=== PATIENT | female | born 1955 | race Caucasian/White ===

== ENCOUNTER → 2016-04-16 | Outpatient (CLI) | payer OTHER ==
[~2016-04-16] MED LIST: COEN100C11 PO; CYAN10005 PO; DULO60CA44 PO; GABA-113 PO; IODI1TAB PO; LEVO25TA5 PO; LORA10TA44 PO; MAGN1CAP2 PO; MULT-506 PO; OXYC-57 PO; TURM1CAP2 PO
== END | disposition home or self-care (01) ==
LOC: C.PAPS 14:11
PROVIDERS: ATTEND Obstetrics & Gynecology
DX: Z01.419 Encounter for gynecological examination (general) (routine) without abnormal findings (principal)

== ENCOUNTER → 2016-04-30 | Outpatient (CLI) | payer OTHER | END | disposition home or self-care (01) | LOC: C.PATHSPEC 15:12 | PROVIDERS: ATTEND Obstetrics & Gynecology | DX: N85.8 Other specified noninflammatory disorders of uterus (principal); F32.9 Major depressive disorder, single episode, unspecified ==

== ENCOUNTER → 2016-05-29 | Outpatient (CLI) | payer OTHER ==
[2016-05-29 14:37] LABS: BASO % 0.2 %; BASO ABS # 0.02 K/uL (0-0.2); COMPLETE YES; EOS % 6.4 %; HEMATOCRIT 42.3 % (37-47); IG% 0.4 %; LYMPH % 24.7 %; LYMPH ABS # 2.29 K/uL (1.2-3.4); MEAN CORPUSCULAR HEMOGLOBIN 31.2 pg (25-34); MEAN CORPUSCULAR HGB CONC 33.6 g/dl (32-36); MEAN PLATELET VOLUME 10.3 fL (7.4-10.4); MONO % 7.4 %; NEUT % 60.9 %; PLATELET COUNT 273 K/uL (130-400); RED BLOOD COUNT 4.55 M/uL (4.2-5.4); WHITE BLOOD COUNT 9.27 K/uL (4.8-10.8)
== END | disposition home or self-care (01) ==
LOC: C.LAB1850 13:46
PROVIDERS: ATTEND Obstetrics & Gynecology
DX: N95.0 Postmenopausal bleeding (principal)

== ENCOUNTER 2016-06-27 05:38 | Observation (INO) | payer OTHER ==
[2016-06-25 13:57] VITALS: BMI 37.0
--- NOTE | 2016-06-25 14:20 | PAT Medication Instructions ---
Service Date Jun 25, 2016. Current Home Medication List Coenzyme Q10 (Ubidecarenone) (Coq-10), 100 MG PO QAM Cyanocobalamin (Vitamin B-12), 1,000 MCG PO QAM Duloxetine Hcl (Cymbalta), 60 MG PO QAM Gabapentin (Neurontin), 300 MG PO HS Iodine (Kelp) (Kelp), 1 TAB PO QAM Levothyroxine Sodium (Levothyroxine Sodium), 1 TAB PO QAM Loratadine (Allergy), 10 MG PO BID Magnesium Oxide (Mg Supplement (Magnesium), 1 TAB PO QAM Multivitamin (Multivitamin), 1 TAB PO QAM Turmeric (Curcuma Longa) (Turmeric), 1 TAB PO QAM Medication Instructions For Your Scheduled Surgery - Hold the following medications 2 weeks prior to surgery: Coenzyme Q10 (Ubidecarenone) (Coq-10), 100 MG PO QAM Turmeric (Curcuma Longa) (Turmeric), 1 TAB PO QAM Iodine (Kelp) (Kelp), 1 TAB PO QAM - Hold the following medications the morning of surgery: Magnesium Oxide (Mg Supplement (Magnesium), 1 TAB PO QAM Multivitamin (Multivitamin), 1 TAB PO QAM Cyanocobalamin (Vitamin B-12), 1,000 MCG PO QAM Loratadine (Allergy), 10 MG PO BID - Take the following medications the morning of surgery with a sip of water OTHERWISE NOTHING TO EAT OR DRINK AFTER MIDNIGHT: Duloxetine Hcl (Cymbalta), 60 MG PO QAM Levothyroxine Sodium (Levothyroxine Sodium), 1 TAB PO QAM - Take the following medications as scheduled the night before surgery: Gabapentin (Neurontin), 300 MG PO HS Loratadine (Allergy), 10 MG PO BID If you have any questions please call us at [phone] or [phone] or [phone]
[2016-06-25 15:30] LABS: BUN/CREATININE RATIO 22.3 (10-20); CALCIUM 9.3 mg/dl (8.5-10.1); CREATININE 0.7 mg/dl (0.60-1.20); POTASSIUM 4.4 mmol/L (3.5-5.1)
[2016-06-27] VITALS (10 sets, daily range): BP systolic 117–155; BP diastolic 70–85; PULSE 72–83; TEMP 36.6–37.1; O2SAT 92–98; Ht 162.6 cm; Wt 98.9 kg
[~2016-06-27] VITALS: Ht 162.6 cm; Wt 98.9 kg
[~2016-06-27 05:38] MED LIST changes: -OXYC-57 PO
[2016-06-27] MEDS ORDERED: LACTATED RINGER'S 1000ML 1,000 ML IV SCH ×3 (06:00→09:16)
[2016-06-27] MEDS ORDERED: CEFAZOLIN 3000 MG/65 ML D5W 50 ML IV SCH (06:00)
[2016-06-27] MEDS ORDERED: ACETAMINOPHEN 1000 MG/100 ML IV IV ONE (06:08)
[2016-06-27] MEDS ORDERED: EpHEDrine SULFATE INJ 50 MG/ML AMP ONE (06:26)
[2016-06-27] MEDS ORDERED: SUCCINYLCHOLINE CHLORIDE 20 MG/ML 10 ML VIAL IV ONE (06:26)
[2016-06-27] MEDS ORDERED: PHENYLEPHRINE HCL INJ 10 MG/ML VIAL ONE (06:26)
[2016-06-27] MEDS ORDERED: DEXAMETHASONE SOD INJ 4 MG/ML VIAL ONE (06:26)
[2016-06-27] MEDS ORDERED: NEOSTIGMINE METHYLSULFATE 5 MG/5 ML SYR ONE (06:27)
[2016-06-27] MEDS ORDERED: FENTANYL CITRATE INJ 50 MCG/1 ML 2 ML VIAL ONE (06:27)
[2016-06-27] MEDS ORDERED: ROCURONIUM BROMIDE 10 MG/ML 5 ML VIAL ONE ×2 (06:27→08:29)
[2016-06-27] MEDS ORDERED: LIDOCAINE HCL 2% 2 ML VIAL (20MG/ML) ONE (06:27)
[2016-06-27] MEDS ORDERED: ONDANSETRON INJ 2 MG/ML 2 ML VIAL ONE (06:27)
[2016-06-27] MEDS ORDERED: MIDAZOLAM HCL 1 MG/ML 2ML VIAL ONE (06:27)
[2016-06-27] MEDS ORDERED: PROPOFOL IV EMULSION 10 MG/ML 20 ML VIAL IV ONE ×2 (06:27→08:14)
[2016-06-27] MEDS ORDERED: GLYCOPYRROLATE INJ 0.2 MG/ML VIAL ONE (06:27)
[2016-06-27] MEDS ORDERED: BUPIVACAINE 0.5 % 5 MG/1 ML MPF 30ML VIAL ONE (06:50)
[2016-06-27] MEDS ORDERED: METHYLENE BLUE 0.5% 10 ML VIAL ONE (06:50)
[2016-06-27] MEDS ORDERED: ATROPINE SULFATE 0.1 MG/ML 5ML SYR IV PRN (07:00)
[2016-06-27] MEDS ORDERED: ONDANSETRON INJ 2 MG/ML 2 ML VIAL IV PRN (07:00)
[2016-06-27] MEDS ORDERED: MoRPHine SULFATE 10 MG/ML CARP/VIAL IV PRN (07:00)
[2016-06-27] MEDS ORDERED: EpHEDrine SULFATE INJ 50 MG/ML AMP IV PRN (07:00)
--- NOTE | 2016-06-27 07:11 | History & Physical Bridge Note ---
H&P Re-Evaluation Bridge Note: I have examined the patient, reviewed the History & Physical and in the interval since the performance of the History & Physical I have noted the following changes of clinical significance: No changes noted
[2016-06-27] MEDS ORDERED: HYDROmorphone INJ 2 MG/ML SYR/VIAL ONE (07:48)
--- NOTE | 2016-06-27 09:16 | [facility] Post Operative Brief Note ---
Immediate Operative Summary Operative Date Jun 27, 2016. Pre-Operative Diagnosis Large intracavity uterine fibroid; postmenopausal bleeding Post-Operative Diagnosis Same as preop Procedure(s) Performed Robotic-assisted total laparoscopic hysterectomy, bilateral salpingo-oopherectomy, cystoscopy Surgeon Dr. Oneal Accountant Bookkeeper Surgeon(s) nursing Estimated Blood Loss 10cc Findings uterus mobile and retroverted. nl PM ovaries bilaterally, nl tubes, left paratubal cyst. nl appendix. Fluids (cc crystalloids) 1200cc Specimens A: uterus, cervix, bilateral fallopian tubes and ovaries Drains stacy Anesthesia gett Complication(s) None Disposition Recovery Room / PACU
[2016-06-27] MEDS ORDERED: OXYC-57 PO (09:19)
[2016-06-27] MEDS: FENTANYL CITRATE INJ 50 MCG/1 ML 2 ML VIAL IV PRN ×4 (09:20→09:35)
--- NOTE | 2016-06-27 09:20 | Discharge Instructions ---
Discharge Instructions Date of Service Jun 27, 2016. Admission Reason for Admission: Submucous Leiomyoma of Uterus Discharge Discharge Diagnosis / Problem: s/p hysterectomy with removal of tubes and ovaries Discharge Goals Goal(s): Specific Goal(s) Activity Recommendations Activity Limitations: per Instructions/Follow-up section . Instructions / Follow-Up Instructions / Follow-Up POST OPERATIVE: BOWEL FUNCTION/MEDICATIONS: 1. Constipation pain and discomfort are the most common complaints 5-7 days after surgery. Points 2-6 address the things that can help. 2. Chewing gum can help stimulate the gut and help improve digestion and motility. 3. Milk of Magnesia 1-2 times per day until return of bowel function. 4. Colace is a stool softener that helps. Taking this 2-3 times per day until bowel function returns to normal is highly recommended. 5. Dulcolax is a laxative that may be used if several days have passed without a bowel movement. Alternatively Miralax may be used daily instead. 6. Drink plenty of fluids as this will also reduce constipation. 7. Narcotic pain medications will be prescribed by your physician. They are safe to use and we encourage you to use them. If you are not allergic, ibuprofen will also be prescribed. Many patients will be able to transition off of the narcotic medications to ibuprofen by postoperative day 3. ACTIVITY RECOMMENDATIONS: 1. Get plenty of rest and listen to your body. If you are tired, take a nap. 2. You may shower, but do not take a tub bath until you see your doctor at the 2 week post operative visit. 3. Absolutely NO intercourse and nothing in the vagina until you are examined by your doctor at the 6 week visit. At that visit it will be determined when such activities can be resumed. This can range from 6-12 weeks after your surgery depending on healing time. 4. The main physical activity in the first week should be walking. By the second week you can slowly increase activity. There are no limits on walking up and down stairs. 5. Do not lift more than 5-10 lbs for 4 weeks. Remember the "one-handed rule", i.e. if you can lift something with only one hand it's likely okay. 6. Minimize district manager in training like vacuuming and exercising for 4 weeks. "Overdoing it" can lead to incisions not healing, pain and vaginal bleeding , so again, listen to your body. 7. Driving can be resumed when you feel able. Do not drive within 24 hours of taking a narcotic medication. EXPECTATIONS: 1. Vaginal spotting, bleeding and discharge are common after surgery. There may even be an odor to the discharge which is often related to sutures used in the vagina. If you experience heavy vaginal bleeding, call the office number day or night [phone]. 2. Bladder discomfort is common after surgery from the catheter. This usually resolves in 1-2 weeks. 3. By the end of the 3rd or 4th week you should be feeling much better. It may take up to 6 weeks for your energy levels to return to normal. 4. Narcotic medications have side effects such as: dizziness, headache, nausea and/or vomiting. If you suspect your pain medication is causing problems, call our office and we may be able to prescribe an alternate medication. 5. The skin incisions are often covered with a liquid bandage. This will gradually peel off over time. CALL THE OFFICE IF YOU HAVE ANY OF THE FOLLOWIN. Temperature of 101 degrees or higher. 2. Severe abdominal or pelvic pain not relieved by pain medication. 3. Persistent nausea or vomiting. 4. Increased pain with urination or difficulty urinating. 5. Bright red bleeding that soaks more than 1 pad per hour. CONTACT PHONE NUMBERS: Main Office: [phone] Surgical Nurse: [phone] extension [phone] Avoid all tobacco products. If you need help to stop smoking, call [place]'s FREE QUITLINE at . This is a free call. Current Hospital Diet Patient's current hospital diet: Discharge Diet Recommended Diet: Regular Diet Procedures Procedures Performed: Robotic-assisted total laparoscopic hysterectomy, bilateral salpingo-oopherectomy, cystoscopy Pending Studies Studies pending at discharge: no Medical Emergencies . Who to Call and When: Medical Emergencies: If at any time you feel your situation is an emergency, please call 911 immediately. . Non-Emergent Contact Non-Emergency issues call your: Machine Cloth Trimmer . . "Provider Documentation" section prepared by Kasis Oneal. VTE Core Measure Inpt VTE Proph given/why not?: Treatment not indicated [place] Drug Monitoring Program Search Results: patient reviewed within database, no issues identified
--- NOTE | 2016-06-27 09:25 | Medical Student: [facility] ---
Immediate Operative Summary Operative Date Jun 27, 2016. Pre-Operative Diagnosis postmenopausal bleeding; intracavitary leiomyoma of uterus Post-Operative Diagnosis same Procedure(s) Performed Total laparoscopic hysterectomy with robotic assist Bilateral Salpingo-oophrectomy Cystoscopy Surgeon Dr. Kassi Oneal Check Out Cashier Surgeon(s) none Estimated Blood Loss 10mL Findings uterus mobile and retroverted with 4cm intracavitary fibroid. Normal postmenopausal ovaries bilaterally, normal fallopian tubes with left paratubal cyst 2cm. Normal appendix in right lower quadrant. Fluids (cc crystalloids) 1200cc Lactated ringers Specimens Uterus, bilateral fallopian tubes and ovaries Drains stacy catheter Anesthesia general with endotracheal tube Complication(s) None Disposition Recovery Room / PACU
--- NOTE | 2016-06-27 09:26 | Medical Student: [facility] ---
Immediate Operative Summary Operative Date Jun 27, 2016. Pre-Operative Diagnosis Postmenopausal uterine bleeding, intracavitary leiomyoma of uterus Post-Operative Diagnosis Same Procedure(s) Performed Total laparoscopic hysterectomy with robotic assist, bilateral salpingo-oophorectomy, cystoscopy Surgeon Kassi Oneal MD Medical Terminologist Surgeon(s) None Estimated Blood Loss 10mL Findings Retroverted and retroflexed uterus on exam 4cm intracavitary uterine leiomyoma 2cm left-sided paratubal cyst Otherwise normal postmenopausal anatomy Fluids (cc crystalloids) 1200mL Lactated Ringer's solution IV Specimens Uterus, bilateral ovaries, bilateral fallopian tubes Anesthesia General anesthesia with endotracheal intubation Complication(s) None Disposition Recovery Room / PACU
[2016-06-27] MEDS ORDERED: IBUPROFEN 600 MG TAB PO PRN (09:30)
[2016-06-27] MEDS ORDERED: MEPERIDINE HCL 50 MG/ML CARP IV PRN (09:30)
[2016-06-27] MEDS ORDERED: KETOROLAC TROMETHAMINE 30 MG/ML VIAL IV. PRN (09:30)
[2016-06-27] MEDS ORDERED: SIMETHICONE 80 MG CHEW PO PRN (09:30)
[2016-06-27] MEDS ORDERED: MEPERIDINE HCL 75 MG/ML CARP IV PRN (09:30)
[2016-06-27] MEDS ORDERED: ACETAMINOPHEN 325 MG TAB PO PRN (09:30)
[2016-06-27] MEDS ORDERED: OXYCODONE/ACETAMINOPHEN 5-325 TAB PO PRN ×2 (09:30)
[2016-06-27] MEDS ORDERED: NALOXONE HCL 0.4 MG/1 ML VIAL/CARP ONE (09:38)
--- NOTE | 2016-06-27 10:46 | Anesthesiology Progress Note ---
Anesthesia Post Op Note Date & Time Jun 27, 2016 at 10:47 Vital Signs Pain Intensity: 0 Vital Signs Past 12 Hours Date Time Temp Pulse Resp B/P Pulse Ox O2 Delivery O2 Flow Rate FiO2 06/27/16 10:35 93 18 162/82 95 Nasal Cannula 3 06/27/16 10:25 83 18 165/72 94 Nasal Cannula 3 06/27/16 10:15 36.3 68 18 154/78 94 Mask 3 06/27/16 10:05 68 16 124/73 94 Mask 5 06/27/16 09:55 67 16 127/72 94 Mask 10 06/27/16 09:45 69 10 147/86 94 Mask 10 06/27/16 09:40 79 10 134/86 85 Mask 15 06/27/16 09:35 63 20 134/86 97 Mask 10 06/27/16 09:25 75 20 160/80 100 Mask 10 06/27/16 09:19 36.4 86 20 154/86 96 Mask 10 06/27/16 06:02 36.6 78 16 146/74 95 Room Air Notes Mental Status: alert / awake / arousable, participated in evaluation Pt Amnestic to Procedure: Yes Nausea / Vomiting: adequately controlled Pain: adequately controlled Airway Patency, RR, SpO2: stable & adequate BP & HR: stable & adequate Hydration State: stable & adequate Anesthetic Complications: no major complications apparent
[2016-06-27] MEDS ORDERED: IV FLUIDS COMPLETED PRN (11:45)
--- NOTE | 2016-06-27 12:59 | OPERATIVE REPORT ---
DATE OF OPERATION: 06/27/2016 PREOPERATIVE DIAGNOSES: 1. Intracavitary fibroid tumor. 2. Postmenopausal bleeding. POSTOPERATIVE DIAGNOSES: Same. PROCEDURE: 1. Total laparoscopic hysterectomy with da Filipe assist and bilateral salpingo-oophorectomy. 2. Cystoscopy. SURGEON: Dr. Oneal. ANESTHESIA: General per endotracheal tube. ESTIMATED BLOOD LOSS: 10 mL FLUIDS: 1200 mL of IV fluid. URINE OUTPUT: Clear yellow urine drained from the Willoughby catheter prior to cystoscopy, unfortunately not measured. INDICATIONS: Ce is a 61-year-old postmenopausal female who we have known for a couple of years that she has had an intracavitary fibroid. This has been asymptomatic for her. Recently, she has noted some increased bleeding from this and the fibroid is slightly larger and so she has decided on definitive therapy. FINDINGS: Uterus was small and retroverted and mobile. The ovaries were very small. Tubes were normal bilaterally, left paratubal cyst. Appendix was visualized and appeared normal. The uterine specimen was opened on the table and there was a 4 cm intracavitary mass which was likely a fibroid noted. COMPLICATIONS: None. DRAINS: Willoughby. DISPOSITION: To recovery room in stable condition. PROCEDURE IN DETAIL: The patient was taken to the operating room where she was identified verbally and by bracelet. She was placed in dorsal supine position where general anesthesia was induced without difficulty. She was then placed in dorsal lithotomy position and placed in Yellofin stirrups. Her arms were carefully tucked and draped at her sides. Her chest was secured. The heading matcher and assembler was placed. She was prepped and draped in normal sterile fashion. A timeout was held identifying correct patient, procedure and positioning. She received preoperative antibiotics of 3 grams of Ancef. Attention was turned to the perineum where a Willoughby catheter was placed. The VCare uterine manipulator was placed into the uterus that sounded to approximately 8 cm. It was sewn to the uterus with 1 stitch of 0 Vicryl at 9 o'clock on the cervix. Gloves were then changed. Attention was then turned to the abdomen where a supraumbilical incision was made with a knife. Veress needle was placed through this with opening pressure of 5 mmHg. The abdomen was insufflated with 2.5 liters of carbon dioxide gas. Then, using a 12 mm trocar, the camera was placed visually through this incision. Then, under direct visualization, right and left 8 mm da Filipe trocar site was placed and a 10 mm left upper quadrant accessory trocar. The patient was placed into steep Trendelenburg. Evaluation of the pelvis was as noted above. The da Filipe quality assistant device was connected to the patient. Gloves were then changed. Attention was then turned to the uterine specimen where first on the right and then on the left the infundibulopelvic ligament was taken down with cautery and scissors, being careful to pull away medially from the sidewall. The ureter was identified on the right but could not be identified on the left because of bowel overrunning it. Then, the round ligaments were taken down, the bladder flap was created anteriorly, the uterine arteries bilaterally were skeletonized, cauterized and then cut. Colpotomy incision was made in 365 degrees starting anteriorly. The specimen was removed from the vagina and then was removed through the vagina. A 2-0 VCare was used to sew up the vaginal cuff. Hemostasis was noted to be excellent. Ureter was evaluated and found to be peristalsing on the right and again could not clearly visualize the ureter on the left. Cystoscopy was then performed with a 70-degree scope. Bilateral ureteral jets were seen effluxing blue urine. There was no damage or stitches within the bladder dome. Cystoscopy was concluded. Her first Willoughby catheter was removed and a new clean Willoughby catheter was placed. The gas was released from the abdomen. The trocars were removed. A deep stitch of 0 Vicryl was placed at the supraumbilical incision and all skin incisions were then closed with 4-0 Vicryl. The incisions were then infiltrated with 0.5% Marcaine and the procedure was thus terminated, after the skin was treated with Dermabond. All sponge, lap, needle counts were correct x2. The patient tolerated the procedure well and was taken to the recovery room in stable condition. I attest to the content of the Intraoperative Record and any orders documented therein. Any exceptio ns are noted below.
--- NOTE | 2016-06-30 11:55 | DISCHARGE SUMMARY ---
ADMISSION DIAGNOSES: Intracavitary leiomyoma with post-menopausal bleeding. DISCHARGE DIAGNOSES: Same. PROCEDURES: Total laparoscopic hysterectomy and bilateral salpingo-oophorectomy with da Filipe assist and cystoscopy. HISTORY OF PRESENT ILLNESS: The patient is a 60-year-old white female, postmenopausal, who has a known intracavitary fibroid. We have followed this for a few years as it was asymptomatic. It was initially found in 2013 when she was having some bloody discharge. She did not want any intervention at that time. At the end of 2015, she had a "period". She returned for evaluation and the fibroid was found to have grown. She also had some further bleeding that responded to [facility] 10 mg daily. I had recommended removal. Discussed hysteroscopic resection versus definitive hyster and she would like to proceed with hyster and would also like a BSO at the same time. The uterus is bulky, but not enlarged and measured 77 mL. The intracavitary fibroid measures 4 cm. Also intermittently a paratubal cystic structure has been seen in the left adnexa. This was not visualized on most recent exam. For the rest of the patient's detailed history and physical, please see her dictated history and physical. ASSESSMENT: This is a patient with an intracavitary fibroid and postmenopausal bleeding. HOSPITAL COURSE: The patient was admitted and underwent a total laparoscopic hysterectomy with da Filipe assist with bilateral salpingo-oophorectomy and cystoscopy. Blood loss was 10 mL. Findings at the time of surgery revealed a uterus that was small, retroverted and mobile. The ovaries were very small. The tubes were normal bilaterally. There was a left paratubal cyst. The appendix was visualized and appeared normal. The uterus specimen was opened on the field and there was a 4 cm intercavitary mass which was likely a fibroid noted. The patient's postoperative course was uncomplicated. She tolerated a regular diet, voided after the removal of her Willoughby catheter, had no nausea and vomiting. Her pain was well controlled with oral pain medications and she was sent home on the evening of postoperative day 0. She was sent home with prescription for Percocet and to follow up in 2 weeks.
== END 2016-06-27 18:40 | disposition home or self-care (01) ==
LOC: ENRESERVDT → ENRESERVTM → C.ACU 05:38 → C.MS4N 06:37
PROVIDERS: ADMIT Obstetrics & Gynecology; ATTEND Obstetrics & Gynecology
DX: D25.0 Submucous leiomyoma of uterus (principal); N84.0 Polyp of corpus uteri; N95.0 Postmenopausal bleeding; F32.9 Major depressive disorder, single episode, unspecified; Z80.49 Family history of malignant neoplasm of other genital organs
CPT/HCPCS: 58571; S2900

== ENCOUNTER → 2016-07-11 | Outpatient (CLI) | payer OTHER ==
[~2016-07-11] MED LIST changes: +OXYC-57 PO
[2016-07-11 17:11] LABS: URINE APPEARANCE CLEAR (CLEAR); URINE BILIRUBIN NEG (NEG); URINE COLOR DK YELLOW; URINE NITRITE NEG (NEG); URINE PH 5.5 (4.5-7.5); URINE SPECIFIC GRAVITY 1.023 (1.000-1.030); UROBILINOGEN NEG (NEG)
[2016-07-11 17:16] LABS: MANUAL MICROSCOPIC REQUIRED? NO; REVIEW REQ? NO
== END | disposition home or self-care (01) ==
LOC: C.LABSPEC 16:22
PROVIDERS: ATTEND Obstetrics & Gynecology
DX: R35.0 Frequency of micturition (principal)